=== PATIENT | female | born 1945 | race Caucasian/White ===

== ENCOUNTER 2018-02-17 18:05 | Inpatient (IN) ==
[2018-02-17] MEDS ORDERED: HYDROmorphone PF Inj 1 MG/ML Ampul IV.PUSH ONE (18:39)
--- NOTE | 2018-02-17 18:47 | ED ---
HPI General Chief Complaint: Fall Stated Complaint: Fall,Evac Time Seen by Provider: 02/17/18 18:22 Source: patient Mode of arrival: EMS Limitations: no limitations History of Present Illness HPI Narrative: 72-year-old female presents the ED via EMS for evaluation of right hip pain after fall from standing. Patient states that she was throwing a Frisbee on the beach with her , twisted, fell to the side landing on her hip. She reports hearing a crack. On presentation she endorses 10/10 pain , worse with any motion. No alleviating factors reported. She endorses hitting her head in the fall. She states that her vision was "momentarily wavy " but now has returned to normal. She denies headache, nausea, vomiting. She has not been ambulatory since the accident. She endorses a high level of anxiety at baseline. She is visiting from [place], [place]. She denies any chronic health problems, takes no daily medications. She had a full lunch around 2:00 this afternoon. Related Data Home Medications Medication Instructions Recorded Confirmed No Known Home Medications 02/17/18 02/17/18 Allergies Allergy/AdvReac Type Severity Reaction Status Date / Time No Known Allergies Allergy Verified 02/17/18 18:39 Review of Systems ROS: all other systems reviewed are negative [facility] [place] Social History Social History Substance History: No History of Abuse Second Hand Smoke Exposure: No Smoking Status: Current every day smoker Tobacco Type: E-Cigarettes How Often Do You Have a Drink Containing Alcohol: Monthly or less Recent Travel in [facility] within the Last 8 Weeks: No Recent Out of Country Travel within the Last 8 Weeks: No Immunization History Tetanus Immunization: >5 Years Exam Narrative Exam Narrative: GENERAL: Well-nourished, well-developed, anxious white female in no acute distress. SKIN: Focused skin assessment warm/dry. HEAD: Atraumatic. Normocephalic. EYES: Pupils equal and round. No scleral icterus. No injection or drainage. ENT: No nasal bleeding or discharge. Mucous membranes pink and moist. NECK: Trachea midline. No JVD. CARDIOVASCULAR: Regular rate and rhythm. No murmur appreciated. RESPIRATORY: No accessory muscle use. Clear to auscultation. Breath sounds equal bilaterally. GASTROINTESTINAL: Abdomen soft, non-tender, nondistended. Hepatic and splenic margins not palpable. MUSCULOSKELETAL: No obvious deformities. No clubbing. No cyanosis. No edema. FOCUSED RIGHT LOWER EXTREMITY EXAM: 2+ DP pulse. Sensation intact to light touch distally. Patient is able to wiggle her toes. Tender to palpation of the anterior lateral aspect of the right hip. Leg is shortened and externally rotated. Range of motion testing deferred secondary to the patient's pain. NEUROLOGICAL: Awake and alert. No obvious cranial nerve deficits. Motor grossly within normal limits. Normal speech. PSYCHIATRIC: Appropriate mood and affect; insight and judgment normal. Course Initial Documented Vital Signs Temperature 98.6 F 02/17/18 18:19 Pulse Rate 81 02/17/18 18:19 Respiratory Rate 17 02/17/18 18:19 Blood Pressure 135/60 02/17/18 18:19 Pulse Oximetry 100 02/17/18 18:19 Last Documented Vital Signs Temperature 98.2 F 02/20/18 08:00 Pulse Rate 85 02/20/18 08:00 Respiratory Rate 18 02/20/18 08:00 Blood Pressure 142/64 H 02/20/18 08:00 Pulse Oximetry 99 02/20/18 08:00 Medical Decision Making [facility] Narrative Medical decision making narrative: 72-year-old female presents the ED via EMS after fall on the beach today. Complains of right hip pain. Vitals reviewed. Physical exam reveals the leg to be foreshortened, externally rotated, neurovascularly intact. Patient also endorses hitting her head with some momentary vision changes. Patient is very anxious. IV was established. Patient was administered 1/2 mg of Dilaudid and 1/[address] of the head unremarkable. X-ray of the hip reveals femoral neck fracture. Patient was placed in a knee immobilizer. Preoperative lab work, EKG and radiological studies ordered and pending. I discussed the results of the workup with the patient and her at bedside. They are visiting in the area, live in [place]. They are agreeable to admission. Ortho consult placed. I spoke with Dr. Waggoner who agrees to accept the patient to the medicine service. Please see orthopedic and medicine notes for disposition. Medical Screen Exam Complete: Yes Emergency Medical Condition: Yes Differential Diagnosis Differential Diagnosis: Hip fracture versus femur fracture versus fall from standing versus closed head injury versus other Lab Data Result diagrams: 02/19/18 07:37 02/19/18 07:37 Lab Results 02/17/18 02/17/1818 Range/Units 21:25 23:50 23:50 WBC 14.4 H (4.0-11.0) th/mm3 RBC 4.55 (4.00-5.30) mil/mm3 Hgb 13.1 (11.6-15.3) gm/dL Hct 37.9 (35.0-46.0) % MCV 83.2 (80.0-100.0) fL MCH 28.8 (27.0-34.0) pg MCHC 34.6 (32.0-36.0) % RDW 12.4 (11.6-17.2) % Plt Count 231 (150-450) th/mm3 MPV 8.9 (7.0-11.0) fL Neut % (Auto) 86.6 H (16.0-70.0) % Lymph % (Auto) 8.3 L (9.0-44.0) % [place] % (Auto) 4.6 (0.0-8.0) % Eos % (Auto) 0.1 (0.0-4.0) % Baso % (Auto) 0.4 (0.0-2.0) % Neut # (Auto) 12.4 H (1.8-7.7) th/mm3 Lymph # (Auto) 1.2 (1.0-4.8) th/mm3 [place] # (Auto) 0.7 (0.0-0.9) th/mm3 Eos # (Auto) 0.0 (0.0-0.4) th/mm3 Baso # (Auto) 0.1 (0.0-0.2) th/mm3 WBC Differential . Differential Comment Auto diff final PT 9.5 L (9.8-11.6) sec INR 0.9 Ratio APTT 21.2 L (24.3-30.1) sec Sodium 139 (136-145) meq/L Potassium 4.4 (3.5-5.1) meq/L Chloride 106 (98-107) meq/L Carbon Dioxide 28.4 (21.0-32.0) meq/L Anion Gap 5 (5-15) meq/L BUN 18 (7-18) mg/dL Creatinine 0.98 (0.50-1.00) mg/dL Estimated GFR 56 L (>89) mL/min Random Glucose 114 H (74-106) mg/dL Calcium 8.3 L (8.5-10.1) mg/dL Total Bilirubin 0.3 (0.2-1.0) mg/dL AST 16 (15-37) U/L ALT 19 (10-53) U/L Alkaline Phosphatase 79 (45-117) U/L Total Protein 7.0 (6.4-8.2) g/dL Albumin 3.6 (3.4-5.0) g/dL Urine Color (Yellw/Straw) Urine Clarity (Clear) Urine pH (5.0-8.5) Ur Specific [place] (1.002-1.035) Urine Protein (Neg-Trace) mg/dL Urine Glucose (UA) (Negative) mg/dL Urine Ketones (Negative) mg/dL Urine Occult Blood (Negative) Urine Nitrate (Negative) Urine Bilirubin (Negative) Urine Urobilinogen (Less than 2) mg/dL Ur Leukocyte Esterase (Negative) Urine RBC (0-3) /hpf Urine WBC (0-5) /hpf Hyaline Casts (0-3) /lpf Micro UA Comment Ur Microscopic Review Urine Culture Comments 02/18/18 02/19/18 02/19/18 Range/Units 01:00 07:37 07:37 WBC 13.0 H (4.0-11.0) th/mm3 RBC 4.02 (4.00-5.30) mil/mm3 Hgb 11.9 (11.6-15.3) gm/dL Hct 34.6 L (35.0-46.0) % MCV 85.9 (80.0-100.0) fL MCH 29.5 (27.0-34.0) pg MCHC 34.4 (32.0-36.0) % RDW 12.5 (11.6-17.2) % Plt Count 230 (150-450) th/mm3 MPV 9.1 (7.0-11.0) fL Neut % (Auto) 81.5 H (16.0-70.0) % Lymph % (Auto) 9.1 (9.0-44.0) % [place] % (Auto) 8.9 H (0.0-8.0) % Eos % (Auto) 0.1 (0.0-4.0) % Baso % (Auto) 0.4 (0.0-2.0) % Neut # (Auto) 10.6 H (1.8-7.7) th/mm3 Lymph # (Auto) 1.2 (1.0-4.8) th/mm3 [place] # (Auto) 1.2 H (0.0-0.9) th/mm3 Eos # (Auto) 0.0 (0.0-0.4) th/mm3 Baso # (Auto) 0.1 (0.0-0.2) th/mm3 WBC Differential . Differential Comment Auto diff final PT (9.8-11.6) sec INR Ratio APTT (24.3-30.1) sec Sodium 137 (136-145) meq/L Potassium 4.5 (3.5-5.1) meq/L Chloride 106 (98-107) meq/L Carbon Dioxide 25.1 (21.0-32.0) meq/L Anion Gap 6 (5-15) meq/L BUN 11 (7-18) mg/dL Creatinine 0.89 (0.50-1.00) mg/dL Estimated GFR 63 L (>89) mL/min Random Glucose 98 (74-106) mg/dL Calcium 8.0 L (8.5-10.1) mg/dL Total Bilirubin 0.4 (0.2-1.0) mg/dL AST 21 (15-37) U/L ALT 15 (10-53) U/L Alkaline Phosphatase 87 (45-117) U/L Total Protein 6.2 L D (6.4-8.2) g/dL Albumin 2.9 L D (3.4-5.0) g/dL Urine Color Yellow (Yellw/Straw) Urine Clarity Clear (Clear) Urine pH 6.0 (5.0-8.5) Ur Specific [place] 1.014 (1.002-1.035) Urine Protein Negative (Neg-Trace) mg/dL Urine Glucose (UA) Negative (Negative) mg/dL Urine Ketones Trace H (Negative) mg/dL Urine Occult Blood Negative (Negative) Urine Nitrate Negative (Negative) Urine Bilirubin Negative (Negative) Urine Urobilinogen Less than 2 (Less than 2) mg/dL Ur Leukocyte Esterase Negative (Negative) Urine RBC 1 (0-3) /hpf Urine WBC 1 (0-5) /hpf Hyaline Casts 3 (0-3) /lpf Micro UA Comment Culture not ind Ur Microscopic Review Not Reportable Urine Culture Comments Culture not ind Imaging Data Radiologist's impression: Femur X-Ray 02/17/18 18:40 CONCLUSION: 1. Right femoral neck fracture. Pelvis X-Ray 02/17/18 18:40 CONCLUSION: 1. Right femoral neck fracture. Head CT 02/17/18 18:41 CONCLUSION: 1. No acute intracranial abnormality. 2. Senescent changes with remote left basal ganglia lacunar infarct. . Chest X-Ray 02/17/18 20:32 CONCLUSION: No acute cardiopulmonary process. Pelvis X-Ray 02/18/18 00:00 CONCLUSION: Postop right hip replacement. Discharge Plan Discharge Disposition Patient Disposition: 30 Still Patient Physicians Team ED Provider: Jyoti Adkins ED Midlevel Provider: Guillermina Paiz Primary Care Provider: UNKNOWN, Attending Provider: Luis Felipe Mcdonald Other Providers: Kendy Keene Status ED Status: Left Department Discharge Information Discharge Date/Time: 02/18/18 01:30
--- NOTE | 2018-02-17 20:18 | XR ---
EXAM DATE: 02/17/2018 8:15 PM EDT AGE/SEX: 72 years / Female INDICATIONS: Fall. Fracture of the proximal femur. CLINICAL DATA: This is the patient's initial encounter. Patient reports that signs and symptoms have been present for 1 day and indicates a pain score of 8/10. MEDICAL/SURGICAL HISTORY: None. None. COMPARISON: No prior exams available for comparison. FINDINGS: There is a fracture of the right femoral neck with slight impaction and cephalad displacement of the distal fragment. Remaining osseous structures appear intact. Joint spaces are maintained. Soft tissue s are grossly unremarkable. CONCLUSION: 1. Right femoral neck fracture. Electronically signed by: Salomon Gracia MD 02/17/2018 8:17 PM EDT
--- NOTE | 2018-02-17 20:19 | CT ---
EXAM DATE: 02/17/2018 8:15 PM EDT AGE/SEX: 72 years / Female INDICATIONS: Trauma; fall. CLINICAL DATA: This is the patient's initial encounter. Patient reports that signs and symptoms have been present for 1 day and indicates a pain score of 8/10. MEDICAL/SURGICAL HISTORY: None. None. RADIATION DOSE: 56.35 CTDI (mGy) COMPARISON: No prior exams available for comparison. TECHNIQUE: CT of the head without contrast. Using automated exposure control and adjustment of the mA and/or kV according to patient size, radiation dose was kept as low as reasonably achievable to ob tain optimal diagnostic quality images. DICOM format image data is available electronically for revi ew and comparison. FINDINGS: Cerebrum: Small right basal ganglia lacunar infarct. Mild to moderate diffuse cerebral atrophy. The v entricles are normal for degree of atrophy. No evidence of midline shift, mass lesion, hemorrhage or acute infarction. No extraaxial fluid collections are seen. Posterior Fossa: The cerebellum and brainstem are intact. The 4th ventricle is midline. The cerebe llopontine angle is unremarkable. Extracranial: The visualized portion of the orbits is intact. Skull: The calvaria is intact. No evidence of skull fracture. CONCLUSION: 1. No acute intracranial abnormality. 2. Senescent changes with remote left basal ganglia lacunar infarct. . Electronically signed by: Salomon Gracia MD 02/17/2018 8:18 PM EDT
--- NOTE | 2018-02-17 20:20 | XR ---
EXAM DATE: 02/17/2018 8:16 PM EDT AGE/SEX: 72 years / Female INDICATIONS: Fall. Fracture of the proximal femur. CLINICAL DATA: This is the patient's initial encounter. Patient reports that signs and symptoms have been present for 1 day and indicates a pain score of 8/10. MEDICAL/SURGICAL HISTORY: None. None. COMPARISON: No prior exams available for comparison. FINDINGS: Slightly impacted fracture of the right femoral neck. Remaining osseous structures appear intact. Heather nt spaces are maintained. Soft tissues are unremarkable. CONCLUSION: 1. Right femoral neck fracture. Electronically signed by: Salomon Gracia MD 02/17/2018 8:18 PM EDT
[2018-02-17] MEDS ORDERED: HYDROmorphone PF Inj 4 MG/ML Ampul IV.PUSH ONE (20:33)
--- NOTE | 2018-02-17 20:51 | XR ---
EXAM DATE: 02/17/2018 8:47 PM EDT AGE/SEX: 72 years / Female INDICATIONS: Evaluate for pneumonia, pneumothorax, or communicable diseases. Pre-op hip. CLINICAL DATA: This is the patient's initial encounter. Patient reports that signs and symptoms have been present for 1 day and indicates a pain score of 0/10. MEDICAL/SURGICAL HISTORY: None. None. COMPARISON: . FINDINGS: A single AP view of the chest demonstrates the lungs to be symmetrically aerated without evidence of mass, infiltrate or effusion. The cardiomediastinal contours are unremarkable. Osseous structures a re intact. CONCLUSION: No acute cardiopulmonary process. Electronically signed by: Edison Galvin MD 02/17/2018 8:49 PM EDT
[2018-02-17] MEDS ORDERED: HYDROmorphone PF Inj 2 MG/ML Vial ONE (21:12)
[2018-02-17 22:21] LABS: Baso # (Auto) 0.1 th/mm3 (0.0-0.2); Baso % (Auto) 0.4 % (0.0-2.0); Eos % (Auto) 0.1 % (0.0-4.0); Hematocrit 37.9 % (35.0-46.0); Hemoglobin 13.1 gm/dL (11.6-15.3); Lymph # (Auto) 1.2 th/mm3 (1.0-4.8); Lymph % (Auto) 8.3 % (9.0-44.0); Mean Corpuscular HGB Conc 34.6 % (32.0-36.0); Mean Corpuscular Hemoglobin 28.8 pg (27.0-34.0); Mean Corpuscular Volume 83.2 fL (80.0-100.0); Mean Platelet Volume 8.9 fL (7.0-11.0); Mono # (Auto) 0.7 th/mm3 (0.0-0.9); Mono % (Auto) 4.6 % (0.0-8.0); Neut # (Auto) 12.4 th/mm3 (1.8-7.7); Neut % (Auto) 86.6 % (16.0-70.0); Platelet Count 231 th/mm3 (150-450); Red Blood Count 4.55 mil/mm3 (4.00-5.30); Red Cell Distribution Width 12.4 % (11.6-17.2); White Blood Count 14.4 th/mm3 (4.0-11.0)
[2018-02-17 22:45] LABS: Alkaline Phosphatase 79 U/L (45-117)
[2018-02-18 00:25] LABS: Activated Partial Thrombo Time 21.2 sec (24.3-30.1); INR 0.9 Ratio; Prothrombin Time 9.5 sec (9.8-11.6)
[2018-02-18 00:33] LABS: Alanine Aminotransferase 19 U/L (10-53); Albumin 3.6 g/dL (3.4-5.0); Anion Gap 5 meq/L (5-15); Aspartate Aminotransferase 16 U/L (15-37); Blood Urea Nitrogen 18 mg/dL (7-18); Calcium 8.3 mg/dL (8.5-10.1); Carbon Dioxide 28.4 meq/L (21.0-32.0); Chloride 106 meq/L (98-107); Glomerular Filtration Rate 56 mL/min (>89); Glucose,Random 114 mg/dL (74-106); Potassium 4.4 meq/L (3.5-5.1); Sodium 139 meq/L (136-145)
[2018-02-18] MEDS ORDERED: oxyCODONE/Acetaminophen 10/325 Tablet PO PRN (00:48)
[2018-02-18] MEDS ORDERED: Naloxone Inj 0.4 MG/ML Vial IV.PUSH PRN (00:48)
[2018-02-18] MEDS ORDERED: Bisacodyl 10 MG Supp RECTAL PRN (00:48)
[2018-02-18] MEDS ORDERED: Morphine Inj 4 MG/ML Vial IV.PUSH PRN (00:48)
[2018-02-18 02:14] LABS: Bilirubin,Urine Negative (Negative); Clarity,Urine Clear (Clear); Color,Urine Yellow (Yellw/Straw); Glucose,Urine (UA) Negative (Negative); Hyaline Casts,Urine 3 /lpf (0-3); Leukocyte Esterase,Urine Negative (Negative); Nitrite,Urine Negative (Negative); Specific Gravity,Urine 1.014 (1.002-1.035)
[2018-02-18] MEDS ORDERED: Chlorhexidine Gluconate 2% 1 Pack (2 Cloths) TOPICAL ONE (02:36)
[2018-02-18] MEDS ORDERED: Metoprolol Tartrate 25 MG Tablet PO ONE (02:36)
[2018-02-18] MEDS ORDERED: Sodium Chlor 0.9% Inj 500 ML IV.SIG SCH (03:00)
--- NOTE | 2018-02-18 03:23 | P.HPIM ---
History of Present Illness Primary Care Physician: UNKNOWN History of Present Illness: 72-year-old female with no significant past medical history who presents following a mechanical fall around 4 PM on 02/17 while playing [place], she did hit her head, as well as right hip. She reports severe continuous sharp pain in the right thigh which is constant and nonradiating, worse with movement. She reports a headache immediately after the fall, however this has resolved. She denies any chest pain or shortness of breath. He denies history of exertional chest pain. Inpatient Certification: I certify that the inpatient services were ordered in accordance with Medicare regulations governing the order. This includes certification that hospital inpatient services are reasonable and necessary and in the case of services not specified as inpatient-only under 42 CFR 419.22(n), that they are appropriately provided as inpatient services in accordance to with the 2-midnight benchmark under 43 CFR 412.3(e) Estimated Total Length of Stay (Days): 3 Plans for Post Hospital Care: Not yet determined Review of Systems All other systems reviewed negative except as stated in HPI PMFSH - History History Provided By: Patient - Medical History Medical History: Medical History (Last Reviewed 02/18/18 @ 03:15 by Johnathon Waggoner MD) Abnormal mammogram of right breast Cyst of left breast - Surgical History Surgical History: Surgical History (Last Reviewed 02/18/18 @ 03:15 by Johnathon Waggoner MD) History of lumpectomy of right breast - Family History Family History: Family History (Last Updated 02/18/18 @ 03:16 by Johnathon Waggoner MD) Father Cancer Mother Ovarian cancer - Tobacco History Second Hand Smoke Exposure: No Tobacco Use In Past 30 Days: No Smoking Status: Current every day smoker Tobacco Type: E-Cigarettes - Alcohol History How Often Do You Have a Drink Containing Alcohol: Monthly or less - Substance Use History Substance History: No History of Abuse - Travel History Recent Travel in the [place] Within the Last 8 Weeks: No Recent Travel Out of the Country Within the Last 8 Weeks: No - Immunization History Tetanus Immunization: >5 Years Hx Influenza Vaccine This Season: No Medications and Allergies Active Medications: Active Medications Al Hydroxide/Mg Hydroxide (Milk Of Magnesia Liq) 30 ml PO Q12H PRN PRN Reason: Mild Constipation Bisacodyl (Dulcolax Supp) 10 mg RECTAL DAILY PRN PRN Reason: SEVERE CONSITIPATION Sodium Chloride (Ns Inj) 1,000 mls @ 65 mls/hr IV.CONT .[id number] [facility] Lactated Ringer's (Lr 1000 Ml Inj) 1,000 mls @ 30 mls/hr IV.SIG .Q24H CARMELITA Stop: 02/19/18 02:44 Sodium Chloride (Ns Inj) 500 mls @ 30 mls/hr IV.SIG .Q10H [facility]EL[facility] Lactulose (Lactulose Liq) 30 ml PO DAILY PRN PRN Reason: SEVERE CONSITIPATION Morphine Sulfate (Morphine Inj) 4 mg IV.PUSH Q3H PRN PRN Reason: BREAKTHROUGH PAIN Naloxone HCl (Narcan Inj) 0.4 mg IV.PUSH UNSCH PRN PRN Reason: SEE LABEL COMMENTS Oxycodone/Acetaminophen (Percocet 10/325 Mg) 1 tab PO Q6H PRN PRN Reason: PAIN SCALE 6 TO 10 Oxycodone/Acetaminophen (Percocet 5/325 Mg) 1 tab PO Q6H PRN PRN Reason: PAIN SCALE 3 TO 5 Senna/Docusate Sodium (Camille-Colace) 1 tab PO BID [facility] Sennosides (Senokot) 17.2 mg PO Q12H PRN PRN Reason: Moderate Constipation Sodium Chloride (Ns Flush) 2 ml IV.FLUSH UNSCH PRN PRN Reason: FLUSH AFTER USING IV ACCESS Allergies Allergy/AdvReac Type Severity Reaction Status Date / Time No Known Allergies Allergy Verified 02/17/18 18:39 Home Medications Medication Instructions Recorded Confirmed Type No Known Home Medications 02/17/18 02/17/18 History Exam Vital signs: Vital Signs 02/17/18 18:19 02/17/18 19:18 02/17/18 19:30 Temperature 98.6 F Pulse Rate 81 73 72 Respiratory Rate 17 18 18 Blood Pressure 135/60 143/65 H 117/59 L Pulse Oximetry 100 99 96 02/17/18 19:36 02/17/18 22:30 02/18/18 00:30 Temperature Pulse Rate 70 64 Respiratory Rate 15 16 15 Blood Pressure 126/66 121/61 Pulse Oximetry 97 97 Intake & Output 02/17/18 02/17/18 02/18/18 06:59 18:59 06:59 Weight 63.957 kg Other: Date of Last Bowel Movement 02/17/18 Narrative: GENERAL: Patient lying in bed. Appears comfortable. Alert and oriented x3 SKIN: Warm and dry. HEAD: Atraumatic. Normocephalic. EYES: Pupils equal and round. No scleral icterus. No injection or drainage. ENT: No nasal bleeding or discharge. Mucous membranes pink and moist. NECK: Trachea midline. No JVD. CARDIOVASCULAR: Regular rate and rhythm. RESPIRATORY: No accessory muscle use. Clear to auscultation. Breath sounds equal bilaterally. GASTROINTESTINAL: Abdomen soft, non-tender, nondistended. Hepatic and splenic margins not palpable. MUSCULOSKELETAL: Extremities without clubbing, cyanosis, or edema. No obvious deformities. NEUROLOGICAL: Awake and alert. No obvious cranial nerve deficits. Motor grossly within normal limits. Five out of 5 muscle strength in the arms.. Right leg pain with movement. Peripheral perfusion is intact. Normal speech. PSYCHIATRIC: Appropriate mood and affect; insight and judgment normal. Results - Labs CBC & Chem 7: 02/17/18 21:25 02/17/18 23:50 Labs: Short CBC 02/17/18 Range/Units 21:25 WBC 14.4 H (4.0-11.0) th/mm3 Hgb 13.1 (11.6-15.3) gm/dL Hct 37.9 (35.0-46.0) % Plt Count 231 (150-450) th/mm3 BMP 02/17/18 23:50 Sodium 139 Potassium 4.4 Chloride 106 Carbon Dioxide 28.4 BUN 18 Creatinine 0.98 Calcium 8.3 L Liver Function 02/17/18 Range/Units 23:50 Total Bilirubin 0.3 (0.2-1.0) mg/dL AST 16 (15-37) U/L ALT 19 (10-53) U/L Alkaline Phosphatase 79 (45-117) U/L Albumin 3.6 (3.4-5.0) g/dL Urine 02/18/18 Range/Units 01:00 Urine Color Yellow (Yellw/Straw) Urine Clarity Clear (Clear) Urine pH 6.0 (5.0-8.5) Ur Specific [place] 1.014 (1.002-1.035) Urine Protein Negative (Neg-Trace) mg/dL Urine Glucose (UA) Negative (Negative) mg/dL - Imaging Impressions Femur X-Ray 02/17/18 18:40 CONCLUSION: 1. Right femoral neck fracture. Pelvis X-Ray 02/17/18 18:40 CONCLUSION: 1. Right femoral neck fracture. Head CT 02/17/18 18:41 CONCLUSION: 1. No acute intracranial abnormality. 2. Senescent changes with remote left basal ganglia lacunar infarct. . Chest X-Ray 02/17/18 20:32 CONCLUSION: No acute cardiopulmonary process. Caprini VTE Risk Assessment Caprini VTE Risk Assessment: Moderate/High Risk (score >= 2) Caprini Risk Assessment Model: Point Value = 1 Point Value = 2 Point Value = 3 Point Value = 5 Age 41-60 Minor surgery BMI > 25 kg/m2 Swollen legs Varicose veins or History of unexplained or recurrent spontaneous Oral contraceptives or hormone replacement Sepsis (< 1 month) Serious lung disease, including pneumonia (< 1 month) Abnormal pulmonary function Acute myocardial infarction Congestive heart failure (< 1 month) History of inflammatory bowel disease Medical patient at bed rest Age 61-74 Arthroscopic surgery Major open surgery (> 45 min) Laparoscopic surgery (> 45 min) Malignancy Confined to bed (> 72 hours) Immobilizing plaster cast Central venous access Age >= 75 History of VTE Family history of VTE Factor V Leiden Prothrombin [id number] Lupus anticoagulant Anticardiolipin antibodies Elevated serum homocysteine Heparin-induced thrombocytopenia Other congenital or acquired thrombophilia Stroke (< 1 month) Elective arthroplasty Hip, pelvis, or leg fracture Acute spinal cord injury (< 1 month) Prophylaxis Regimen: Total Risk Factor Score Risk Level Prophylaxis Regimen 0-1 Low Early ambulation 2 Moderate Order ONE of the following: *Sequential Compression Device (SCD) *Heparin 5000 units SQ BID 3-4 Higher Order ONE of the following medications: *Heparin 5000 units SQ TID *Enoxaparin/Lovenox 40 mg SQ daily (WT < 150 kg, CrCl > 30 mL/min) *Enoxaparin/Lovenox 30 mg SQ daily (WT < 150 kg, CrCl > 10-29 mL/min) *Enoxaparin/Lovenox 30 mg SQ BID (WT < 150 kg, CrCl > 30 mL/min) AND/OR *Sequential Compression Device (SCD) 5 or more Highest Order ONE of the following medications: *Heparin 5000 units SQ TID (Preferred with Epidurals) *Enoxaparin/Lovenox 40 mg SQ daily (WT < 150 kg, CrCl > 30 mL/min) *Enoxaparin/Lovenox 30 mg SQ daily (WT < 150 kg, CrCl > 10-29 mL/min) *Enoxaparin/Lovenox 30 mg SQ BID (WT < 150 kg, CrCl > 30 mL/min) AND *Sequential Compression Device (SCD) Assessment and Plan - Plan //Acute right femoral neck fracture following mechanical fall. = Pain control. Orthopedic consulted. Appreciate assistance. //Head injury following mechanical fall. Head CT negative for acute process. //Incidental finding of old lacunar infarct. Patient will need blood pressure monitoring,, and would benefit from risk factor modification, close follow-up with primary care. Discussed Condition With: Patient, nurse, ED physician. H&P: Quality - VTE Deep Vein Thrombosis/Pulmonary Embolism Present on Admission: No
[2018-02-18] MEDS: Senna/Docusate Sodium 8.6/50 MG Tablet PO SCH ×2 (08:58→22:09)
--- NOTE | 2018-02-18 09:29 | P.PN ---
Subjective Interval history: Follow-up for acute right femoral neck fracture. Patient is currently resting in bed. She denies any acute concerns. She is scheduled for surgery today. She is traveling from [place] and would like to go back to [place] as well as possible. Physical Exam Vital signs: Vital Signs 02/17/18 18:19 02/17/18 19:18 02/17/18 19:30 Temperature 98.6 F Pulse Rate 81 73 72 Respiratory Rate 17 18 18 Blood Pressure 135/60 143/65 H 117/59 L Pulse Oximetry 100 99 96 02/17/18 19:36 02/17/18 22:30 02/18/18 00:30 Temperature Pulse Rate 70 64 Respiratory Rate 15 16 15 Blood Pressure 126/66 121/61 Pulse Oximetry 97 97 02/18/18 04:00 Temperature 97.5 F L Pulse Rate 62 Respiratory Rate 17 Blood Pressure 141/65 H Pulse Oximetry 100 Intake & Output 02/17/18 02/18/18 02/18/18 18:59 06:59 18:59 Output Total 200 / 200 Balance -200 / -200 Weight 63.957 kg 64.7 kg Output: Urine Amount (Catheter) 200 / 200 Female External 200 / 200 Other: Date of Last Bowel Movement 02/17/18 02/17/18 Narrative: GENERAL: Patient lying in bed. Appears comfortable. Alert and oriented x3 SKIN: Warm and dry. HEAD: Atraumatic. Normocephalic. EYES: Pupils equal and round. No scleral icterus. No injection or drainage. ENT: No nasal bleeding or discharge. Mucous membranes pink and moist. NECK: Trachea midline. No JVD. CARDIOVASCULAR: Regular rate and rhythm. RESPIRATORY: No accessory muscle use. Clear to auscultation. Breath sounds equal bilaterally. GASTROINTESTINAL: Abdomen soft, non-tender, nondistended. Hepatic and splenic margins not palpable. MUSCULOSKELETAL: Extremities without clubbing, cyanosis, or edema. No obvious deformities. NEUROLOGICAL: Awake and alert. No obvious cranial nerve deficits. Motor grossly within normal limits. Five out of 5 muscle strength in the arms.. Right leg pain with movement. Peripheral perfusion is intact. Normal speech. PSYCHIATRIC: Appropriate mood and affect; insight and judgment normal. - Urinary Catheter Management Female External Cath placed during this visit: yes Reason for continuing: Not indwelling catheter Insertion date: 02/18/18 Insertion time: 00:15 Results - Labs CBC & Chem 7: 02/17/18 21:25 02/17/18 23:50 Laboratory Results - last 24 hr 02/17/18 02/17/18 02/17/18 21:25 23:50 23:50 WBC 14.4 H RBC 4.55 Hgb 13.1 Hct 37.9 MCV 83.2 MCH 28.8 MCHC 34.6 RDW 12.4 Plt Count 231 MPV 8.9 Neut % (Auto) 86.6 H Lymph % (Auto) 8.3 L [place] % (Auto) 4.6 Eos % (Auto) 0.1 Baso % (Auto) 0.4 Neut # (Auto) 12.4 H Lymph # (Auto) 1.2 [place] # (Auto) 0.7 Eos # (Auto) 0.0 Baso # (Auto) 0.1 WBC Differential . Differential Comment Auto diff final PT 9.5 L INR 0.9 APTT 21.2 L Sodium 139 Potassium 4.4 Chloride 106 Carbon Dioxide 28.4 Anion Gap 5 BUN 18 Creatinine 0.98 Estimated GFR 56 L Random Glucose 114 H Calcium 8.3 L Total Bilirubin 0.3 AST 16 ALT 19 Alkaline Phosphatase 79 Total Protein 7.0 Albumin 3.6 Urine Color Urine Clarity Urine pH Ur Specific [place] Urine Protein Urine Glucose (UA) Urine Ketones Urine Occult Blood Urine Nitrate Urine Bilirubin Urine Urobilinogen Ur Leukocyte Esterase Urine RBC Urine WBC Hyaline Casts Micro UA Comment Ur Microscopic Review Urine Culture Comments 02/18/18 01:00 WBC RBC Hgb Hct MCV MCH MCHC RDW Plt Count MPV Neut % (Auto) Lymph % (Auto) [place] % (Auto) Eos % (Auto) Baso % (Auto) Neut # (Auto) Lymph # (Auto) [place] # (Auto) Eos # (Auto) Baso # (Auto) WBC Differential Differential Comment PT INR APTT Sodium Potassium Chloride Carbon Dioxide Anion Gap BUN Creatinine Estimated GFR Random Glucose Calcium Total Bilirubin AST ALT Alkaline Phosphatase Total Protein Albumin Urine Color Yellow Urine Clarity Clear Urine pH 6.0 Ur Specific [place] 1.014 Urine Protein Negative Urine Glucose (UA) Negative Urine Ketones Trace H Urine Occult Blood Negative Urine Nitrate Negative Urine Bilirubin Negative Urine Urobilinogen Less than 2 Ur Leukocyte Esterase Negative Urine RBC 1 Urine WBC 1 Hyaline Casts 3 Micro UA Comment Culture not ind Ur Microscopic Review Not Reportable Urine Culture Comments Culture not ind - Imaging Impressions Femur X-Ray 02/17/18 18:40 CONCLUSION: 1. Right femoral neck fracture. Pelvis X-Ray 02/17/18 18:40 CONCLUSION: 1. Right femoral neck fracture. Head CT 02/17/18 18:41 CONCLUSION: 1. No acute intracranial abnormality. 2. Senescent changes with remote left basal ganglia lacunar infarct. . Chest X-Ray 02/17/18 20:32 CONCLUSION: No acute cardiopulmonary process. Assessment and Plan - Plan Ms. Martin is a pleasant 72-year-old female with no significant past medical history who presented to the emergency department on 02/17/2018 after [place] fall [place]. She is traveling from [place]. ED workup indicated right femoral neck fracture. Orthopedic surgery was consulted. Acute right femoral fracture -Scheduled for surgical intervention today. -Acetaminophen, Percocet, morphine for pain. -Bowel regimen. Head injury -Negative CT head for any acute findings. -Incidental finding of old lacunar infarct. -May benefit from low dose aspirin 81mg Qday for stroke prophylaxis. Will defer to PCP. Patient lives in [place]. Full code. Pharmacological DVT prophylaxis when okay with orthopedic surgery.
--- NOTE | 2018-02-18 12:12 | P.CONOP ---
[facility] Orthopedics Consult Note - [facility] Consult date: 02/18/18 Chief complaint: Right hip fracture, fall Narrative: 72 year old female who sustained a fall [place] on the right hip. She came to the ED and imaging revealed a displaced femoral neck fracture. She denies other injuries. No numbness or tingling. Review of Systems All other systems reviewed negative except as stated in [facility] PMFSH - History History Provided By: Patient - Medical History Medical History: Medical History (Last Reviewed 02/18/18 @ 12:09 by Kendy Keene MD) Abnormal mammogram of right breast Cyst of left breast - Surgical History Surgical History: Surgical History (Last Reviewed 02/18/18 @ 12:09 by Kendy Keene MD) History of lumpectomy of right breast - Family History Family History: Family History (Last Reviewed 02/18/18 @ 12:09 by Kendy Keene MD) Father Cancer Mother Ovarian cancer - Social History I have reviewed the patient's Social History: Yes - Tobacco History Second Hand Smoke Exposure: No Tobacco Use In Past 30 Days: No Smoking Status: Current every day smoker Tobacco Type: E-Cigarettes - Alcohol History How Often Do You Have a Drink Containing Alcohol: Monthly or less - Substance Use History Substance History: No History of Abuse - Travel History Recent Travel in the [place] Within the Last 8 Weeks: No Recent Travel Out of the Country Within the Last 8 Weeks: No - Immunization History Tetanus Immunization: >5 Years Hx Influenza Vaccine This Season: No Medications and Allergies Active Medications: Active Medications Acetaminophen (Tylenol) 500 mg PO Q6H PRN PRN Reason: Headache, fever, pain 1-4 Al Hydroxide/Mg Hydroxide (Milk Of [place] Liq) 30 ml PO Q12H PRN PRN Reason: Mild Constipation Bisacodyl (Dulcolax Supp) 10 mg RECTAL DAILY PRN PRN Reason: SEVERE CONSITIPATION Sodium Chloride (Ns Inj) 1,000 mls @ 65 mls/hr IV.CONT .H10F25H CARMELITA Lactated Ringer's (Lr 1000 Ml Inj) 1,000 mls @ 30 mls/hr IV.SIG .Q24H CARMELITA Stop: 02/19/18 02:44 Sodium Chloride (Ns Inj) 500 mls @ 30 mls/hr IV.SIG .Q10H CARMELITA Lactulose (Lactulose Liq) 30 ml PO DAILY PRN PRN Reason: SEVERE CONSITIPATION Morphine Sulfate (Morphine Inj) 4 mg IV.PUSH Q3H PRN PRN Reason: BREAKTHROUGH PAIN Naloxone HCl (Narcan Inj) 0.4 mg IV.PUSH UNSCH PRN PRN Reason: SEE LABEL COMMENTS Oxycodone/Acetaminophen (Percocet 7.5/325 Mg) 1 tab PO Q6H PRN PRN Reason: Pain 5-10 Senna/Docusate Sodium (Camille-Colace) 1 tab PO BID CARMELITA Last Admin: 02/18/18 08:58 Dose: Not Given Sennosides (Senokot) 17.2 mg PO Q12H PRN PRN Reason: Moderate Constipation Sodium Chloride (Ns Flush) 2 ml IV.FLUSH UNSCH PRN PRN Reason: FLUSH AFTER USING IV ACCESS Allergies Allergy/AdvReac Type Severity Reaction Status Date / Time No Known Allergies Allergy Verified 02/17/18 18:39 Home Medications Medication Instructions Recorded Confirmed Type No Known Home Medications 02/17/18 02/17/18 History Exam Vital signs: Vital Signs 02/17/18 18:19 02/17/18 19:18 02/17/18 19:30 Temperature 98.6 F Pulse Rate 81 73 72 Respiratory Rate 17 18 18 Blood Pressure 135/60 143/65 H 117/59 L Pulse Oximetry 100 99 96 02/17/18 19:36 02/17/18 22:30 02/18/18 00:30 Temperature Pulse Rate 70 64 Respiratory Rate 15 16 15 Blood Pressure 126/66 121/61 Pulse Oximetry 97 97 02/18/18 04:00 02/18/18 08:00 02/18/18 09:00 Temperature 97.5 F L 97.3 F L Pulse Rate 62 64 59 L Respiratory Rate 17 16 Blood Pressure 141/65 H 130/61 Pulse Oximetry 100 100 Intake & Output 02/17/18 02/18/18 02/18/18 18:59 06:59 18:59 Output Total 200 / 200 Balance -200 / -200 Weight 63.957 kg 64.7 kg Output: Urine Amount (Catheter) 200 / 200 Female External 200 / 200 Other: Date of Last Bowel Movement 02/17/18 02/17/18 Narrative: right lower extremity exam: pain with logroll. +DP. +EHL/FHL/PF/DF. SILT. - Constitutional no acute distress - Routine HEENT Exam Head: Present: normocephalic - Routine Neck Exam Present: supple - Routine Respiratory Exam Absent: accessory muscle use - Routine Cardiovascular Exam Present: RRR - Routine Neurological Exam Present: alert, oriented X3 Results - Labs Result Diagrams: 02/17/18 21:25 02/17/18 23:50 Labs: Laboratory Results - last 24 hr 02/17/18 02/17/18 02/17/18 21:25 23:50 23:50 WBC 14.4 H RBC 4.55 Hgb 13.1 Hct 37.9 MCV 83.2 MCH 28.8 MCHC 34.6 RDW 12.4 Plt Count 231 MPV 8.9 Neut % (Auto) 86.6 H Lymph % (Auto) 8.3 L [place] % (Auto) 4.6 Eos % (Auto) 0.1 Baso % (Auto) 0.4 Neut # (Auto) 12.4 H Lymph # (Auto) 1.2 [place] # (Auto) 0.7 Eos # (Auto) 0.0 Baso # (Auto) 0.1 WBC Differential . Differential Comment Auto diff final PT 9.5 L INR 0.9 APTT 21.2 L Sodium 139 Potassium 4.4 Chloride 106 Carbon Dioxide 28.4 Anion Gap 5 BUN 18 Creatinine 0.98 Estimated GFR 56 L Random Glucose 114 H Calcium 8.3 L Total Bilirubin 0.3 AST 16 ALT 19 Alkaline Phosphatase 79 Total Protein 7.0 Albumin 3.6 Urine Color Urine Clarity Urine pH Ur Specific [place] Urine Protein Urine Glucose (UA) Urine Ketones Urine Occult Blood Urine Nitrate Urine Bilirubin Urine Urobilinogen Ur Leukocyte Esterase Urine RBC Urine WBC Hyaline Casts Micro UA Comment Ur Microscopic Review Urine Culture Comments 02/18/18 01:00 WBC RBC Hgb Hct MCV MCH MCHC RDW Plt Count MPV Neut % (Auto) Lymph % (Auto) [place] % (Auto) Eos % (Auto) Baso % (Auto) Neut # (Auto) Lymph # (Auto) [place] # (Auto) Eos # (Auto) Baso # (Auto) WBC Differential Differential Comment PT INR APTT Sodium Potassium Chloride Carbon Dioxide Anion Gap BUN Creatinine Estimated GFR Random Glucose Calcium Total Bilirubin AST ALT Alkaline Phosphatase Total Protein Albumin Urine Color Yellow Urine Clarity Clear Urine pH 6.0 Ur Specific [place] 1.014 Urine Protein Negative Urine Glucose (UA) Negative Urine Ketones Trace H Urine Occult Blood Negative Urine Nitrate Negative Urine Bilirubin Negative Urine Urobilinogen Less than 2 Ur Leukocyte Esterase Negative Urine RBC 1 Urine WBC 1 Hyaline Casts 3 Micro UA Comment Culture not ind Ur Microscopic Review Not Reportable Urine Culture Comments Culture not ind - Diagnostic results Imaging: Impressions Femur X-Ray 02/17/18 18:40 CONCLUSION: 1. Right femoral neck fracture. Pelvis X-Ray 02/17/18 18:40 CONCLUSION: 1. Right femoral neck fracture. Head CT 02/17/18 18:41 CONCLUSION: 1. No acute intracranial abnormality. 2. Senescent changes with remote left basal ganglia lacunar infarct. . Chest X-Ray 02/17/18 20:32 CONCLUSION: No acute cardiopulmonary process. Hip x-ray: report reviewed, image reviewed Assessment and Plan - Problem List (1) Fracture of femoral neck, right, closed Code(s): S72.001A - Fracture of unspecified part of neck of right femur, initial encounter for closed fracture Status: Acute - Assessment and Plan 72 yo F with right displaced femoral neck fracture Plan: to OR today for right hip hemiarthroplasty. Risks, benefits, alternatives discussed with patient and she would like to proceed with surgical management.
[2018-02-18] MEDS ORDERED: Tranexamic Acid Inj 1,000 MG/10 ML Ampul ONE (18:01)
[2018-02-18] MEDS ORDERED: Neostigmine Inj 5 MG/5 ML Syringe IV.PUSH ONE (18:03)
[2018-02-18] MEDS ORDERED: Lidocaine PF 1% Inj 5 ML Syringe OTHER ONE (18:03)
[2018-02-18] MEDS ORDERED: Glycopyrrolate Inj 1 MG/5 ML Syringe IV.PUSH ONE (18:03)
[2018-02-18] MEDS ORDERED: Tranexamic Acid Inj 1,000 MG in Sodium Chlor 0.9% Inj 100 ML IV.SIG SCH (19:00)
[2018-02-18] MEDS ORDERED: fentaNYL Citrate Inj 100 MCG/2 ML Ampul ONE (20:18)
--- NOTE | 2018-02-18 20:18 | P.BOP ---
- Preoperative Diagnosis (1) Fracture of femoral neck, right, closed - Postoperative Diagnosis (1) Fracture of femoral neck, right, closed Date of procedure: 02/18/18 Procedure: right hip hemiarthroplasty Implants: Depuy Anesthesia: GETA Surgeon: Kendy Keene MD Estimated blood loss (mL): 150 Pathology: none sent Condition: stable Disposition: PACU
[2018-02-18] MEDS ORDERED: *morphine SULFATE 4 MG/ML PERIprocedure ONLY ONE (20:43)
[2018-02-18] MEDS: Sod Chloride 0.9% Inj 1,000 ML IV.CONT SCH ×2 (20:47→22:57)
[2018-02-18] MEDS ORDERED: Tranexamic Acid Inj 1,000 MG in Sodium Chlor 0.9% Inj 100 ML IV.SIG ONE (21:00)
--- NOTE | 2018-02-18 21:19 | XR ---
EXAM DATE: 02/18/2018 9:00 PM EDT AGE/SEX: 72 years / Female INDICATIONS: Post op total hip. CLINICAL DATA: This is the patient's subsequent encounter. Patient reports that signs and symptoms h ave been present for 2 days and indicates a pain score of Nonresponsive. MEDICAL/SURGICAL HISTORY: None. None. [place] [facility] [place]. . FINDINGS: Postoperative right replacement. Normal alignment. No complicating features identified. CONCLUSION: Postop right hip replacement. Electronically signed by: Kvng Espinal MD 02/18/2018 9:17 PM EDT
--- NOTE | 2018-02-18 22:29 | P.OP ---
- Preoperative Diagnosis (1) Fracture of femoral neck, right, closed - Postoperative Diagnosis (1) Fracture of femoral neck, right, closed Date of procedure: 02/18/18 Procedure: Right hip hemiarthroplasty Implants: Depuy [place] size 9 stem 28 + 1.5 head 42 bipolar Anesthesia: GETA Surgeon: Kendy Keene MD Estimated blood loss (mL): 150 Pathology: none sent Operation and Findings: DESCRIPTION OF PROCEDURE: The patient was identified in the preoperative holding area and the correct site was clearly marked. She was then brought back to the operating room and general anesthesia was administered. She was then transferred to the operating table and positioned laterally on the pegboard. The right leg was then prepped and draped in the usual sterile fashion. Prophylactic antibiotics as well as 1 g of tranexamic acid was given prior to start. After an appropriate time-out was performed, a curvilinear incision was made over the posterior aspect of the greater trochanter. Dissection was then carried down through the skin and subcutaneous and down to the fascia. Short external rotators were then identified and incised and tagged with suture. Capsule was then incised and tagged with suture. Using retractors, the femoral head was accessed and removed with use of a corkscrew. The head was incised to 42 mm after trial reduction showed good fit and suction within the acetabulum. I then turned my attention to the femur. This was elevated with a hip skid and a canal finder used to locate the canal. Sequential reamers and broaches were used until good stability was noted. This was sized to a size 9 stem. Calcar planer was then utilized to smooth out the remainder of the femoral neck so it was flush with the stem trial. Trial components placed and the hip was reduced. Hip was taken through full range of motion and noted to be stable and appropriate leg lengths with size 28 +1.5mm femoral head. Trial components were then removed and the wound was irrigated copiously with irrigation. The stem was impacted into place and he head and bipolar were impacted to the stem. The hip was then reduced. Hip was again tested through full range of motion and noted to be stable. The wound was then irrigated once more with irrigation. The short external rotators and capsule were then repaired with #5 Ticron and #1 Ethibond , and the fascial layer was closed with #1 Vicryl. Subcutaneous tissue was then closed with interrupted 2-0 Vicryl followed by a running 3-0 Monocryl to the skin. Incision was covered with Dermabond followed by sterile bandage. The patient was then placed in an induction pillow, transferred back to the bed and taken to the recovery room in good condition.
[2018-02-18] MEDS: ceFAZolin Inj 1,000 MG in Sodium Chlor 0.9% Inj 100 ML IV.SIG SCH (22:57)
--- NOTE | 2018-02-19 00:18 | ECG ---
Date Performed: 02/17/2018 Time Performed: 22:58:28 PTAGE: 72 years EKG: Sinus rhythm NONSPECIFIC T-WAVE FLATTENING IN aVL BORDERLINE ECG NO PREVIOUS TRACING DOCTOR: Jose Luis Bolton Interpretating Date/Time 02/19/2018 00:17:37
[2018-02-19] MEDS: ceFAZolin Inj 1,000 MG in Sodium Chlor 0.9% Inj 100 ML IV.SIG SCH ×2 (07:37→16:03)
--- NOTE | 2018-02-19 08:14 | P.PNOP ---
Subjective Interval history: Doing well, no overnight issues, appropriate postop right hip pain. Physical Exam Vital signs: Vital Signs 02/18/18 09:00 02/18/18 12:00 02/18/18 16:00 Temperature 97.6 F 98.4 F Pulse Rate 59 L 74 64 Respiratory Rate 16 16 Blood Pressure 135/63 142/65 H Pulse Oximetry 100 99 02/18/18 20:25 02/18/18 20:45 02/18/18 21:00 Temperature 97.9 F Pulse Rate 99 H 89 64 Respiratory Rate 14 18 16 Blood Pressure 141/67 H 152/59 H 125/58 L Pulse Oximetry 99 100 100 02/18/18 21:11 02/18/18 21:15 02/18/18 21:30 Temperature 97.5 F L Pulse Rate 64 72 Respiratory Rate 14 14 16 Blood Pressure 133/60 148/71 H Pulse Oximetry 100 100 02/19/18 00:00 02/19/18 00:47 02/19/18 04:00 Temperature 97.8 F 97.4 F L Pulse Rate 83 72 72 Respiratory Rate 18 17 Blood Pressure 123/60 122/61 Pulse Oximetry 98 97 Intake & Output 02/18/18 02/19/18 02/19/18 18:59 06:59 18:59 Intake Total 3017 / 3017 Output Total 150 / 150 Balance 2867 / 2867 Weight 64.9 kg Intake: IV 1210 / 1210 NS Inj 1,000 ML @ 65 mls/hr IV. 1000 / 1000 CONT .[id number] CARMELITA Rx#:[id number] Cyklokapron Inj 1,000 MG In NS 110 / 110 Inj 100 ML @ 200 mls/hr IV.SIG ONCE CARMELITA Rx#:[id number] Ancef Inj 1,000 MG In NS Inj 100 / 100 100 ML @ 200 mls/hr IV.SIG Q8H CARMELITA Rx#:[id number] Anesthesia Amount 1000 / 1000 Other 807 / 807 Output: Estimated Blood Loss 150 / 150 Other: # Voids 2 Date of Last Bowel Movement 02/17/18 02/17/18 Narrative: R hip incision c/d/i. 2+DP. +EHL/FHL/PF/DF. SILT - Urinary Catheter Management Female External Cath placed during this visit: yes Reason for continuing: Not indwelling catheter Insertion date: 02/18/18 Insertion time: 00:15 Results - Labs CBC & Chem 7: 02/17/18 21:25 02/17/18 23:50 - Imaging Impressions Pelvis X-Ray 02/18/18 00:00 CONCLUSION: Postop right hip replacement. Assessment and Plan - Ortho Post Op Day # 1 - Problem List (1) Fracture of femoral neck, right, closed Code(s): S72.001A - Fracture of unspecified part of neck of right femur, initial encounter for closed fracture Status: Acute - Assessment and Plan 72 yo F POD 1 s/p R hip hemiarthroplasty Plan: WBAT RLE Posterior hip precautions PT to mobilize Lovenox VTE ppx
[2018-02-19 08:49] LABS: Baso # (Auto) 0.1 th/mm3 (0.0-0.2); Baso % (Auto) 0.4 % (0.0-2.0); Eos % (Auto) 0.1 % (0.0-4.0); Hematocrit 34.6 % (35.0-46.0); Hemoglobin 11.9 gm/dL (11.6-15.3); Lymph # (Auto) 1.2 th/mm3 (1.0-4.8); Lymph % (Auto) 9.1 % (9.0-44.0); Mean Corpuscular HGB Conc 34.4 % (32.0-36.0); Mean Corpuscular Hemoglobin 29.5 pg (27.0-34.0); Mean Corpuscular Volume 85.9 fL (80.0-100.0); Mean Platelet Volume 9.1 fL (7.0-11.0); Mono # (Auto) 1.2 th/mm3 (0.0-0.9); Mono % (Auto) 8.9 % (0.0-8.0); Neut # (Auto) 10.6 th/mm3 (1.8-7.7); Neut % (Auto) 81.5 % (16.0-70.0); Platelet Count 230 th/mm3 (150-450); Red Blood Count 4.02 mil/mm3 (4.00-5.30); Red Cell Distribution Width 12.5 % (11.6-17.2)
[2018-02-19 09:26] LABS: Alanine Aminotransferase 15 U/L (10-53); Albumin 2.9 g/dL (3.4-5.0); Alkaline Phosphatase 87 U/L (45-117); Anion Gap 6 meq/L (5-15); Aspartate Aminotransferase 21 U/L (15-37); Blood Urea Nitrogen 11 mg/dL (7-18); Carbon Dioxide 25.1 meq/L (21.0-32.0); Chloride 106 meq/L (98-107); Glomerular Filtration Rate 63 mL/min (>89); Glucose,Random 98 mg/dL (74-106); Potassium 4.5 meq/L (3.5-5.1); Sodium 137 meq/L (136-145); Total Protein 6.2 g/dL (6.4-8.2)
--- NOTE | 2018-02-19 09:35 | P.PN ---
Subjective Interval history: Follow-up for acute right femoral neck fracture. Patient is doing well. No acute concerns. Pain is well controlled. Tolerating diet well. Physical Exam Vital signs: Vital Signs 02/18/18 12:00 02/18/18 16:00 02/18/18 20:25 Temperature 97.6 F 98.4 F 97.9 F Pulse Rate 74 64 99 H Respiratory Rate 16 16 14 Blood Pressure 135/63 142/65 H 141/67 H Pulse Oximetry 100 99 99 02/18/18 20:45 02/18/18 21:00 02/18/18 21:11 Temperature Pulse Rate 89 64 Respiratory Rate 18 16 14 Blood Pressure 152/59 H 125/58 L Pulse Oximetry 100 100 02/18/18 21:15 02/18/18 21:30 02/19/18 00:00 Temperature 97.5 F L 97.8 F Pulse Rate 64 72 83 Respiratory Rate 14 16 18 Blood Pressure 133/60 148/71 H 123/60 Pulse Oximetry 100 100 98 02/19/18 00:47 02/19/18 04:00 02/19/18 08:00 Temperature 97.4 F L 98.0 F Pulse Rate 72 72 74 Respiratory Rate 17 16 Blood Pressure 122/61 108/54 L Pulse Oximetry 97 98 Intake & Output 02/18/18 02/19/18 02/19/18 18:59 06:59 18:59 Intake Total 3017 / 3017 Output Total 150 / 150 Balance 2867 / 2867 Weight 64.9 kg Intake: IV 1210 / 1210 NS Inj 1,000 ML @ 65 mls/hr IV. 1000 / 1000 CONT .[id number] CARMELITA Rx#:[id number] Cyklokapron Inj 1,000 MG In NS 110 / 110 Inj 100 ML @ 200 mls/hr IV.SIG ONCE CARMELITA Rx#:[id number] Ancef Inj 1,000 MG In NS Inj 100 / 100 100 ML @ 200 mls/hr IV.SIG Q8H CARMELITA Rx#:[id number] Anesthesia Amount 1000 / 1000 Other 807 / 807 Output: Estimated Blood Loss 150 / 150 Other: # Voids 2 Date of Last Bowel Movement 02/17/18 02/17/18 Narrative: GENERAL: Alert, NAD. SKIN: Warm and dry. HEAD: Normocephalic. EYES: No scleral icterus. No injection or drainage. NECK: Supple, trachea midline. No JVD or lymphadenopathy. CARDIOVASCULAR: Regular rate and rhythm without murmurs, gallops, or rubs. RESPIRATORY: Breath sounds equal bilaterally. No accessory muscle use. GASTROINTESTINAL: Abdomen soft, non-tender, nondistended. MUSCULOSKELETAL: No cyanosis, or edema. s/p right hip hemiarthroplasty. BACK: Nontender without obvious deformity. No CVA tenderness. - Urinary Catheter Management Female External Cath placed during this visit: yes Reason for continuing: Not indwelling catheter Insertion date: 02/18/18 Insertion time: 00:15 Results - Labs CBC & Chem 7: 02/19/18 07:37 02/19/18 07:37 Laboratory Results - last 24 hr 02/19/18 02/19/18 07:37 07:37 WBC 13.0 H RBC 4.02 Hgb 11.9 Hct 34.6 L MCV 85.9 MCH 29.5 MCHC 34.4 RDW 12.5 Plt Count 230 MPV 9.1 Neut % (Auto) 81.5 H Lymph % (Auto) 9.1 [place] % (Auto) 8.9 H Eos % (Auto) 0.1 Baso % (Auto) 0.4 Neut # (Auto) 10.6 H Lymph # (Auto) 1.2 [place] # (Auto) 1.2 H Eos # (Auto) 0.0 Baso # (Auto) 0.1 WBC Differential . Differential Comment Auto diff final Sodium 137 Potassium 4.5 Chloride 106 Carbon Dioxide 25.1 Anion Gap 6 BUN 11 Creatinine 0.89 Estimated GFR 63 L Random Glucose 98 Calcium 8.0 L Total Bilirubin 0.4 AST 21 ALT 15 Alkaline Phosphatase 87 Total Protein 6.2 L D Albumin 2.9 L D - Imaging Impressions Pelvis X-Ray 02/18/18 00:00 CONCLUSION: Postop right hip replacement. - Procedures Date of procedure: 02/18/18 Procedure: Right hip hemiarthroplasty Assessment and Plan - Plan Ms. Martin is a pleasant 72-year-old female with no significant past medical history who presented to the emergency department on 02/17/2018 after mechanical fall [place]. She is traveling from [place]. ED workup indicated right femoral neck fracture. Orthopedic surgery was consulted. Acute right femoral fracture -s/p Right hip hemiarthroplasty. -Acetaminophen, Percocet, morphine for pain. -Bowel regimen. Head injury -Negative CT head for any acute findings. -Incidental finding of old lacunar infarct. -May benefit from low dose aspirin 81mg Qday for stroke prophylaxis. Will defer to PCP. Patient lives in [place]. Full code. Lovenox. Discharge: Will d/c when cleared by Orthopedic surgery.
[2018-02-19] MEDS: Senna/Docusate Sodium 8.6/50 MG Tablet PO SCH ×2 (09:39→21:03)
[2018-02-19] MEDS: Enoxaparin Inj 40 MG/0.4 ML Syringe SQ SCH (10:45)
[2018-02-19] MEDS: Sod Chloride 0.9% Inj 1,000 ML IV.CONT SCH (10:46)
[2018-02-19] MEDS: Acetaminophen 500 MG Tablet PO PRN (21:02)
[2018-02-20] MEDS: Senna/Docusate Sodium 8.6/50 MG Tablet PO SCH (08:39)
[2018-02-20] MEDS: Acetaminophen 500 MG Tablet PO PRN (08:40)
[2018-02-20] MEDS: Enoxaparin Inj 40 MG/0.4 ML Syringe SQ SCH (08:47)
[2018-02-20 09:14] VITALS: RESP 18
--- NOTE | 2018-02-20 14:52 | P.DCO ---
- Physical Therapy Order: Evaluate and treat, Improve ambulation, Strength and gait training - Home Health Nursing Order: Medical education, Signs/symptoms of disease process, Nursing assessment with vital signs - Case Management Consult No - Certification I have seen patient Nichelle Martin on 02/20/18. My clinical findings support the need for the requested home health care services because: Limited mobility due to disease progression, Limited ability to care for self, High risk of falls, Infection with risk of complications I certify that my clinical findings support that this patient is homebound because: Post-op weakness, Unsteady gait/balance, Unsafe to leave home unassisted, Unable to use public transportation
[2018-02-20 18:24] VITALS: BP 130/61; PULSE 88; TEMP 98.6; O2SAT 100
--- NOTE | 2018-02-20 20:54 | P.PNOP ---
Subjective Interval history: Doing well with appropriate postop right hip pain. Plan to d/c home today back to [place]. Physical Exam Vital signs: Vital Signs 02/20/18 00:00 02/20/18 04:00 02/20/18 08:00 Temperature 98.3 F 98.4 F 98.2 F Pulse Rate 73 79 85 Respiratory Rate 17 17 18 Blood Pressure 132/62 127/59 L 142/64 H Pulse Oximetry 98 98 99 02/20/18 16:00 Temperature 98.6 F Pulse Rate 88 Respiratory Rate 18 Blood Pressure 130/61 Pulse Oximetry 100 Intake & Output 02/20/18 02/20/18 02/21/18 06:59 18:59 06:59 Weight 68.5 kg Other: # Voids 4 Date of Last Bowel Movement 02/17/18 02/17/18 Narrative: RLE dressing c/d/i. 2+DP. +EHL/FHL/PF/DF. SILT. - Urinary Catheter Management Female External Cath placed during this visit: yes Reason for continuing: Not indwelling catheter Insertion date: 02/18/18 Insertion time: 00:15 Results - Labs CBC & Chem 7: 02/19/18 07:37 02/19/18 07:37 - Procedures Date of procedure: 02/18/18 Procedure: Right hip hemiarthroplasty Assessment and Plan - Problem List (1) Fracture of femoral neck, right, closed Code(s): S72.001A - Fracture of unspecified part of neck of right femur, initial encounter for closed fracture Status: Acute - Assessment and Plan 72 yo F POD 2 s/p R hip hemiarthroplasty Plan: WBAT RLE Posterior hip precautions PT to mobilize Lovenox VTE ppx OK to d/c, recommend orthopedic follow up at home in 2 weeks
== END 2018-02-20 18:15 | disposition home health service (06) ==
LOC: NEPE 18:05 → NEDA 23:15 → N06 02-18 01:30
PROVIDERS: ADMIT Hospitalist; ATTEND Hospitalist